=== PATIENT | female | born 1970 | race Caucasian/White ===

== ENCOUNTER 2022-02-03 15:12 | Emergency (ER) | payer OTHER ==
[2022-02-03 15:26] VITALS: BP 114/71; PULSE 83; RESP 18; TEMP 98.3; BMI 28.3
[2022-02-03] MEDS ORDERED: ASPIRIN 81 MG CHEWABLE TABLETS PO ONE (15:59)
[2022-02-03 16:41] LABS: BASO % 0.5 % (0-2.0); EOS % 1.9 % (0-4.5); HEMATOCRIT 41.9 % (32.4-45.2); HEMOGLOBIN 14.1 GM/dL (10.7-15.3); MCH 31.2 pg (25.7-33.7); MCHC 33.5 g/dl (32.0-36.0); MEAN PLT VOLUME 8.2 fl (7.5-11.1); MONO % 9.4 % (3.8-10.2); NEUT % 58.2 % (42.8-82.8); PLATELET COUNT 248 10^3/uL (134-434); RBC 4.51 M/mm3 (3.60-5.2); RDW 13.7 % (11.6-15.6); WHITE BLOOD COUNT 6.5 K/mm3 (4.0-10.0)
[2022-02-03 16:43] LABS: INR 0.91 (0.83-1.09); PROTHROMBIN TIME (PATIENT) 10.5 SEC (9.7-13.0)
[2022-02-03 16:46] LABS: ACTIVATED PTT 32.2 SECONDS (25.2-36.5)
[2022-02-03] MEDS ORDERED: ASPIRIN 81 MG CHEWABLE TABLETS ONE (16:48)
[2022-02-03 16:49] LABS: MAGNESIUM 2.2 mg/dL (1.8-2.4)
[2022-02-03 17:01] LABS: CALCIUM 9.4 mg/dL (8.5-10.1)
[2022-02-03 17:05] LABS: CREATININE 0.9 mg/dL (0.55-1.3)
[2022-02-03 17:07] LABS: BILIRUBIN,TOTAL 0.3 mg/dL (0.2-1); TOT PROT 7.5 g/dl (6.4-8.2)
== END 2022-02-03 20:01 | disposition home or self-care (01) ==
LOC: JER 15:12
DX: R00.2 Palpitations (principal)
CPT/HCPCS: 0241U-QW; 36415; 71046-TC-FY; 71275-TC; 80053; 82550; 83735; 84439; 84443; 84484; 84703; 85025; 85379; 85610; 85730; 93005; 93010; 99285-25; Q9967